=== PATIENT | male | born 1995 | race Two or more races ===

== ENCOUNTER 2019-09-19 14:29 | Emergency (ER) | payer BC ==
--- NOTE | 2019-09-19 14:48 | ER Document Report ---
ED Medical Screen (RME) - General Chief Complaint: Chest Pain Stated Complaint: CHEST PAIN Time Seen by Provider: 09/19/19 14:34 - HPI Notes: 09/19/19 14:43 24-year-old male presents to the emergency with substernal chest pain that started last night while he was walking in the patio to inside. States this episode lasted about 10 to 15 minutes and happening almost every 45 minutes cycle. Reports he does feel some shortness of breath when he is having the chest pain. States that the pain does radiate down his left arm to his fingers, states he had a couple episodes of feeling this with his arm last night as well as this morning. Reports he is concurrent dizziness as well. States he has some left foot numbness, he is not sure if this is associated. denies any leg numbness. Denies any nausea vomiting or diarrhea, blurred vision double vision loss of vision. Denies any new medications foods or travel. Reports that his mother has a history of stroke. Denies any headaches. Denies any fevers or chills. I have greeted and performed a rapid initial assessment of this patient. A comprehensive ED assessment and evaluation of the patient, analysis of test results and completion of the medical decision making process will be conducted by additional ED providers. PHYSICAL EXAMINATION: GENERAL: Well-appearing, well-nourished and in no acute distress. HEAD: Atraumatic, normocephalic. EYES: Pupils equal round extraocular movements intact, conjunctiva are normal. NECK: Normal range of motion CV: s1, s2 regular LUNGS: No respiratory distress Musculoskeletal: Normal range of motion NEUROLOGICAL: Normal speech, normal gait. SKIN: Warm, Dry, normal turgor, no rashes or lesions noted. - Related Data Allergies/Adverse Reactions: codeine Allergy (Intermediate, Verified 09/19/19 14:44) Swelling of tongue Home Medications: denies Past Medical History - Social History Chew tobacco use (# tins/day): No Frequency of alcohol use: Occasional Drug Abuse: None Physical Exam - Vital signs Vitals: Temp Pulse Resp BP Pulse Ox 98.4 F 74 18 129/89 H 100 09/19/19 14:39 09/19/19 14:39 09/19/19 14:39 09/19/19 14:39 09/19/19 14:39 Course - Vital Signs Vital signs: Temp Pulse Resp BP Pulse Ox 98.4 F 74 18 129/89 H 100 09/19/19 14:39 09/19/19 14:39 09/19/19 14:39 09/19/19 14:39 09/19/19 14:39
--- NOTE | 2019-09-19 15:05 | RADIOLOGY REPORT (SQ) ---
EXAM DESCRIPTION: CHEST 2 VIEWS IMAGES COMPLETED DATE/TIME: 09/19/2019 2:58 pm REASON FOR STUDY: chest pain COMPARISON: None. EXAM PARAMETERS: NUMBER OF VIEWS: two views TECHNIQUE: Digital Frontal and Lateral radiographic views of the chest acquired. RADIATION DOSE: NA LIMITATIONS: none FINDINGS: LUNGS AND PLEURA: No opacities, masses or pneumothorax. No pleural effusion. MEDIASTINUM AND HILAR STRUCTURES: No masses or contour abnormalities. HEART AND VASCULAR STRUCTURES: Heart normal size. No evidence for failure. BONES: No acute findings. HARDWARE: None in the chest. OTHER: No other significant finding. IMPRESSION: NO ACUTE RADIOGRAPHIC FINDING IN THE CHEST. TECHNICAL DOCUMENTATION: JOB ID: [id number] 2010 [employer]- All Rights Reserved Reading location - IP/workstation name: [email or web address]
[2019-09-19 15:08] LABS: ABSOLUTE EOSINOPHILS # (AUTO) 0.2 10^3/uL (0.0-0.6); ABSOLUTE LYMPHOCYTES (AUTO) 3.2 10^3/uL (0.5-4.7); ABSOLUTE MONOCYTES (AUTO) 0.8 10^3/uL (0.1-1.4); ABSOLUTE NEUT (AUTO) 3.7 10^3/uL (1.7-8.2); BASOPHILS % (AUTO) 0.4 % (0-2); EOSINOPHILS % (AUTO) 2.2 % (0-6); HEMATOCRIT 48.4 % (37.9-51.0); HEMOGLOBIN 16.8 g/dL (13.5-17.0); LYMPHOCYTES % (AUTO) 40.4 % (13-45); MEAN CORPUSCULAR HEMOGLOBIN 30.8 pg (27.0-33.4); MEAN CORPUSCULAR HGB CONC 34.6 g/dL (32.0-36.0); MEAN CORPUSCULAR VOLUME 89 fl (80-97); MONOCYTES % (AUTO) 9.7 % (3-13); PLATELET COUNT 244 10^3/uL (150-450); RED BLOOD COUNT 5.44 10^6/uL (4.35-5.55); RED CELL DISTRIBUTION WIDTH 12.9 % (11.5-14.0); SEGMENTED NEUTROPHILS % (AUTO) 47.3 % (42-78); TOTAL CELLS COUNTED % (AUTO) 100 %; WHITE BLOOD COUNT 7.9 10^3/uL (4.0-10.5)
[2019-09-19 15:32] LABS: ALBUMIN 4.7 g/dL (3.5-5.0); ALKALINE PHOSPHATASE 42 U/L (38-126); ANION GAP 7 (5-19); ASPARTATE AMINO TRANSFERASE 40 U/L (17-59); BILIRUBIN,TOTAL 0.3 mg/dL (0.2-1.3); BLOOD UREA NITROGEN 14 mg/dL (7-20); CALCIUM 9.4 mg/dL (8.4-10.2); CARBON DIOXIDE 25 mmol/L (22-30); CHLORIDE 108 mmol/L (98-107); CREATINE KINASE 206 U/L (55-170); GLUCOSE 105 mg/dL (75-110); POTASSIUM 4.2 mmol/L (3.6-5.0)
[2019-09-19 15:43] LABS: CREATINE KINASE MB 1.26 ng/mL (<4.55)
[2019-09-19 15:46] LABS: TROPONIN I < 0.012 ng/mL
[2019-09-20] MEDS ORDERED: COLCHICINE 0.6 MG TABLET PO ONE (01:02)
[2019-09-20] MEDS ORDERED: IBUPROFEN 600 MG TABLET PO ONE (01:02)
--- NOTE | 2019-09-20 01:22 | ER Document Report ---
ED General - General Chief Complaint: Chest Pain Stated Complaint: CHEST PAIN Time Seen by Provider: 09/19/19 14:34 - HPI Notes: 24-year-old male history of chronic lower back pain resents with approximately 1 day of sharp left-sided chest pain without radiation aggravated by exertion without associated symptoms. Patient also complains of pain in lower back radiating to bilateral buttocks with intermittent feeling of numbness in lateral right toes which is been going on for few days. Patient denies any fever, cough cold symptoms, recent infections, sick contacts, travel, rashes, change in gait, urinary retention, bowel incontinence, IV drug use, other drug use, immunocompromise, trauma, bleeding diatheses, cardiac history or risk factors, PE risk factors, weakness, numbness - Related Data Allergies/Adverse Reactions: codeine Allergy (Intermediate, Verified 09/19/19 14:44) Swelling of tongue Home Medications: denies Past Medical History - General Information source: Patient - Social History Smoking Status: Current Every Day Smoker Chew tobacco use (# tins/day): No Frequency of alcohol use: Occasional Drug Abuse: None Family History: Reviewed & Not Pertinent Review of Systems - Review of Systems Notes: REVIEW OF SYSTEMS: CONSTITUTIONAL : Denies fever, chills, or sweats. EENT: Denies recent cold/sinus symptoms, denies throat pain CARDIOVASCULAR: Denies chest pain, DERIC RESPIRATORY: Denies cough, denies shortness of breath. GASTROINTESTINAL: Denies abdominal pain, nausea/vomiting. GENITOURINARY: Denies difficulty urinating, painful urination. MUSCULOSKELETAL: Denies neck pain, +back pain. SKIN: Denies rash or skin lesions. HEMATOLOGIC : Denies easy bruising or bleeding. LYMPHATIC: Denies swollen, enlarged glands. NEUROLOGICAL: Denies headache, denies change in gait. PSYCHIATRIC: Denies anxiety or stress or depression. Physical Exam - Vital signs Vitals: Temp Pulse Resp BP Pulse Ox 98.4 F 74 18 129/89 H 100 09/19/19 14:39 09/19/19 14:39 09/19/19 14:39 09/19/19 14:39 09/19/19 14:39 - General Notes: PHYSICAL EXAMINATION: GENERAL: Well-appearing, well-nourished and in no acute distress. HEAD: Atraumatic, normocephalic. EYES: Pupils equal round and appropriate constriction, sclera anicteric, conjunctiva are normal. ENT: nares patent, moist mucous membranes. NECK: Normal range of motion, supple without lymphadenopathy LUNGS: Breath sounds clear to auscultation bilaterally and equal. No wheezes rales or rhonchi. HEART: Regular rate and rhythm without murmurs ABDOMEN: Soft, nontender, no guarding, no masses, no CVAT EXTREMITIES: Normal range of motion, no pitting or edema. No cyanosis. Bilateral lower extremities 2+ DP pulses, normal sensation in all distributions, 5 out of 5 strength in all distributions, normal DTRs, normal gait, no midline spinal tenderness NEUROLOGICAL: Awake, alert, conversing appropriately, moves all extremities spontaneously. PSYCH: Normal mood, normal affect. SKIN: Warm, Dry, normal turgor, no rashes or lesions noted. Course - Re-evaluation Re-evalutation: 09/20/19 07:53 EKG and description of chest pain consistent with pericarditis, no signs of myocarditis. Troponin negative and patient without any syncope or hemodynamic instability, no enlarged cardiac silhouette on chest x-ray, patient very well- appearing. Discharge patient on ibuprofen and colchicine with PCP and cards follow-up and also orthopedic surgery follow-up for his likely radicular pain causing some mild neuropathy symptoms but no signs of cord compression/cauda equina and patient appropriate for outpatient follow-up. Gave patient extensive return to ED precautions for both diagnoses which she demonstrated understanding of. - Vital Signs Vital signs: Temp Pulse Resp BP Pulse Ox 98.2 F 54 L 18 133/86 H 100 09/20/19 02:31 09/20/19 02:31 09/20/19 02:31 09/20/19 02:31 09/20/19 02:31 - Laboratory Result Diagrams: 09/19/19 14:51 09/19/19 14:51 Laboratory results interpreted by me: 09/19/19 14:51 Chloride 108 H Creatine Kinase 206 H - EKG Interpretation by Me Additional EKG results interpreted by me: 09/20/19 07:55 Heart rate 58, diffuse ST elevations, no ST depressions, no anatomic distribution, QTC 382 Discharge - Discharge Clinical Impression: Radicular low back pain Pericarditis Qualifiers: Pericarditis type: unspecified type Chronicity: acute Qualified Code(s): I30.9 - Acute pericarditis, unspecified Condition: Stable Disposition: HOME, SELF-CARE Additional Instructions: Pericarditis You have a condition known as pericarditis. This is an inflammation in the sack surrounding the heart, called the pericardium. Often no cause can be identified. It is usually due to viral infection, but can be caused by tumors, heart attacks, tuberculosis, kidney disease, and other conditions. Your physician's examination has determined that hospitalization is not necessary. Pericarditis is treated with antiinflammatory medication. Typically, the symptoms will subside within a few days. Pain medication may be required. You should call the doctor if you develop increasing pain, shortness of breath, fever, lightheadedness or weakness, or swelling in the feet or ankles. Radiculopathy Radiculopathy is irritation of a nerve. Sometimes this is called "pinched nerve." The pain can be sharp and stabbing, constant and dull, or burning in nature. The pain can occur in any area of the chest, shoulders, or arms. Sometimes the pain is provoked by coughing or moving. Radiculopathy can be caused by physical pressure on a nerve, such as a herniated disc or swollen joint in the spine. It can also be caused by viral infections within the nerve or by nerve damage due to diabetes or blood vessel disease. Radicular pain is treated with antiinflammatory medicine. Injections may help resistant cases, if we can identify a single nerve that's causing the pain. Surgery is usually not necessary. If symptoms do not improve with time, you may need additional testing, such as an MRI or EMG (electromyogram). Return if there is local weakness or numbness, shortness of breath, increasing pain, or other new symptoms. Follow-up with an orthopedic surgeon, primary doctor, and control clerk subassembly within 1 week. Return to the emergency department immediately if you have fainting or almost fainting, body swelling, difficulty breathing, difficulty walking, difficulty urinating or holding her bowel movements, or any other worsening or alarming symptoms. Prescriptions: Colchicine 0.6 mg PO BID 14 Days #28 capsule Naproxen 500 mg PO BID PRN #14 tablet PRN Reason:
[2019-09-20 02:38] VITALS: BP 133/86
--- NOTE | 2019-09-20 09:27 | EKG REPORT ---
SEVERITY:- ABNORMAL ECG - SINUS RHYTHM ST ELEVATION SUGGESTS PERICARDITIS VS EARLY REPOLARIZATION ABNORMALITIES : Confirmed by: Raj Thurman 20-Sep-2019 09:26:18
--- NOTE | 2019-09-20 09:27 | EKG REPORT ---
SEVERITY:- NORMAL ECG - SINUS RHYTHM : Confirmed by: Raj Thurman 20-Sep-2019 09:26:24
== END 2019-09-20 02:48 | disposition home or self-care (01) ==
LOC: ER 14:29
DX: I30.9 Acute pericarditis, unspecified (principal); M54.5 Low back pain; R07.9 Chest pain, unspecified; R20.0 Anesthesia of skin; F17.200 Nicotine dependence, unspecified, uncomplicated; Z20.828 Contact with and (suspected) exposure to other viral communicable diseases
CPT/HCPCS: 93005; 99285; 36415; 82553; 82550; 85025; 87635; 80053; 84484; 71046; 93010; C9803